=== PATIENT | male | born 1965 | race Caucasian/White ===

== ENCOUNTER 2017-07-16 23:47 | Emergency (ER) | payer OTHER ==
[~2017-07-16] VITALS: Ht 157.5 cm; Wt 53.5 kg
[2017-07-17 00:36] LABS: HEMOGLOBIN 14.7 G/DL (12.5-16.6); MCH 32.6 PG (29.0-34.0); MCHC 35.9 G/DL (30.0-36.0); MCV 90.9 FL (86-99); PLATELET COUNT 271 K/uL (156-360); RBC DIS.WIDTH-SD 43.1 % (39-53); RED BLOOD COUNT 4.51 M/uL (4.00-5.50); WHITE BLOOD COUNT 10.9 K/uL (4.1-10.2)
[2017-07-17 00:51] LABS: CHLORIDE 105 mEq/L (99-109); POTASSIUM 4.2 mEq/L (3.7-5.4); SODIUM 139 mEq/L (136-147)
[2017-07-17 00:52] LABS: GLUCOSE 92 mg/dL (70-99)
[2017-07-17 00:56] LABS: CREATININE 0.8 mg/dL (0.6-1.3); GFR ESTIMATE (CALCULATED) > 59 mL/min/ (58.99-99999)
[2017-07-17 00:57] LABS: UREA NITROGEN (BUN) 10 mg/dL (9-23)
[2017-07-17 04:54] VITALS: BP 139/90
== END 2017-07-17 04:49 | disposition short-term general hospital (02) ==
LOC: EME → TRA 23:47 → EME 23:47 → EDBD 23:47 → TRA 07-17 04:49
PROVIDERS: Emergency Medicine
PROC: 3E0234Z Introduction of Serum, Toxoid and Vaccine into Muscle, Percutaneous Approach (ICD-10-PCS; principal; 2017-07-17)
DX: S68.022A Partial traumatic metacarpophalangeal amputation of left thumb, initial encounter (principal); W31.9XXA Contact with unspecified machinery, initial encounter; Y99.0 Civilian activity done for income or pay; Z23 Encounter for immunization; F17.200 Nicotine dependence, unspecified, uncomplicated
CPT/HCPCS: 73140; 80048; 85027; 86850; 86900; 86901; 99281; 99285; J0690